=== PATIENT | female | born 1990 | race Caucasian/White ===

== ENCOUNTER 2016-10-13 11:16 | Outpatient (CLI) | payer BC, OTHER ==
[2016-10-13 12:13] LABS: HEMOGLOBIN 12.5 gm/dl (12.3-15.3); RED BLOOD COUNT 4.34 M/UL (4.00-5.10); WHITE BLOOD COUNT 12.5 K/UL (4.5-11.0)
== END 2016-10-13 12:09 | disposition home or self-care (01) ==
LOC: GENOP 11:16
PROVIDERS: Obstetrics & Gynecology
DX: Z01.818 Encounter for other preprocedural examination (principal); O34.219 Maternal care for unspecified type scar from previous cesarean delivery
CPT/HCPCS: 36415; 81001; 85025

== ENCOUNTER 2016-10-14 05:26 | Inpatient (IN) | payer BC, OTHER ==
[~2016-10-14] VITALS: Ht 172.7 cm; Wt 118.4 kg
[2016-10-15 03:37] LABS: HEMOGLOBIN 10.1 gm/dl (12.3-15.3)
== END 2016-10-16 16:45 | disposition home or self-care (01) | DRG 765 ==
LOC: OB 05:26
PROVIDERS: ADMIT Obstetrics & Gynecology
PROC: 3E0R3CZ (ICD-10-PCS; 2016-10-14)
PROC: 10D00Z1 Extraction of Products of Conception, Low, Open Approach (ICD-10-PCS; principal; 2016-10-14 07:30)
PROC: 3E0234Z Introduction of Serum, Toxoid and Vaccine into Muscle, Percutaneous Approach (ICD-10-PCS; 2016-10-16)
DX: O32.1XX1 Maternal care for breech presentation, fetus 1 (principal); O72.1 Other immediate postpartum hemorrhage; O32.2XX2 Maternal care for transverse and oblique lie, fetus 2; Z37.2 Twins, both liveborn; O30.043 Twin pregnancy, dichorionic/diamniotic, third trimester; O14.94 Unspecified pre-eclampsia, complicating childbirth; O99.02 Anemia complicating childbirth; D64.9 Anemia, unspecified; Z3A.37 37 weeks gestation of pregnancy; O99.214 Obesity complicating childbirth; E66.9 Obesity, unspecified; Z68.38 Body mass index [BMI] 38.0-38.9, adult; Z23 Encounter for immunization; Z83.3 Family history of diabetes mellitus; Z82.49 Family history of ischemic heart disease and other diseases of the circulatory system; Z83.49 Family history of other endocrine, nutritional and metabolic diseases
CPT/HCPCS: 82800; 82803; 85014; 85018; 90715; C9113; J0690; J2274; J2405; J2550; J2590; J2765; J3010; J7050; J7120